=== PATIENT | male | born 1960 | race Caucasian/White ===

== ENCOUNTER 2017-07-15 16:04 | Outpatient (CLI) | payer BC ==
--- NOTE | 2017-07-15 18:59 | MRI ---
MRI CERVICAL SPINE: 07/15/2017 HISTORY: Acute cervical radiculopathy. Neck pain for several years. COMPARISON: 09/11/2003 FINDINGS: There is mild atrophy of each of the visualized cerebellar hemispheres. The cervicomedullary junctio n demonstrates a normal MRI appearance. The paravertebral soft tissues have a normal signal intensit y. There are mild endplate degenerative changes seen at the C4-C5 and C5-C6 levels. Normal signal inten sity is otherwise demonstrated throughout the bone marrow. C2-C3: There is no disk bulge or disk herniation. The central spinal canal and neural foramina are patent. C3-C4: There is trace anterolisthesis of C3 on C4, which was not present on the prior exam. There a re facet degenerative changes, primarily on the left, at this level. A small synovial cyst is seen p osterior to the facet joints on the left, measuring less than 1 cm. There is a mild broad-based disk osteophyte complex, which narrows the ventral subarachnoid space. The right neural foramen is paten t, but there is what appears to be severe left-sided neural foraminal narrowing, which is an interval change from the prior exam. C4-C5: There is loss of intervertebral disk height. There is a broad-based disk osteophyte complex, which narrows the ventral subarachnoid space. There is moderate left and severe right-sided neural foraminal narrowing. Uncinate process hypertrophy is present on the right. C5-C6: There is loss of intervertebral disk height. There is a mild broad-based disk osteophyte com plex, resulting in slight effacement of the ventral subarachnoid space, but does not encroach on the central spinal canal. The left neural foramen is patent, but there is mild to moderate right-sided n eural foraminal narrowing. C6-C7: There is uncinate process hypertrophy bilaterally, with mild broad-based disk osteophyte comp max noted. Mild facet degenerative changes are seen. There is mild right and moderate left-sided ne ural foraminal narrowing. C7-T1: There is no disk bulge or disk herniation. The central spinal canal and neural foramina are patent. IMPRESSION: 1. Multilevel degenerative changes seen throughout the cervical spine, which have progressed compare d to a study in 2003. 2. Trace anterolisthesis of C3 on C4, likely related to the facet degenerative changes at this level . POS: [facility]
== END 2017-07-15 16:05 | disposition home or self-care (01) ==
LOC: TBSIIMAG 16:04
PROVIDERS: ATTEND Anesthesiology Pain Medicine
DX: M47.22 Other spondylosis with radiculopathy, cervical region (principal)
CPT/HCPCS: 72141

== ENCOUNTER 2017-07-24 08:21 | Outpatient (CLI) | payer BC | END 2017-07-24 08:22 | disposition home or self-care (01) | LOC: BICRAD 08:21 | PROVIDERS: ATTEND Anesthesiology Pain Medicine | DX: M47.892 Other spondylosis, cervical region (principal); M43.12 Spondylolisthesis, cervical region | CPT/HCPCS: 72050 ==

== ENCOUNTER 2018-02-04 12:09 | Emergency (ER) | payer BC ==
[2018-02-04 12:32] LABS: #Basophils 0.1 thou/uL (0.0-0.2); #Eosinphils 0.1 thou/uL (0.0-0.7); #Lymphocytes 2.6 thou/uL (1.20-3.40); #Monocytes 0.5 thou/uL (0.11-0.59); #Neutrophils 4.2 thou/uL (1.40-6.50); %Basophils 0.8 % (0.0-1.0); %Lymphocytes 35.5 % (21.0-51.0); %Monocytes 6.7 % (0.0-10.0); %Neutrophils 56.1 % (42.0-75.0); Hemoglobin 15.9 g/dL (14.0-18.0); Mean Corpuscular HGB CONC 34.1 g/dL (32.0-36.0); Mean Corpuscular Hemoglobin 28.9 pg (27.0-31.0); Mean Corpuscular Volume 84.8 fL (78.0-98.0); Mean Platelet Volume 8.3 fL (7.4-10.4); Platelet Count 206 thou/uL (130-400); RBC Distribution Width 11.3 % (11.5-14.5); Red Blood Cell (RBC) Count 5.49 mill/uL (4.70-6.10); White Blood Cell (WBC) Count 7.4 thou/uL (4.8-10.8)
[2018-02-04 12:34] LABS: MDiff Complete? YES
[2018-02-04 12:41] LABS: Anion Gap 17 mmol/L (10-20); BUN (Urea Nitrogen) 17 mg/dL (8.4-25.7); Calc. Creatinine Clearance 0 mL/min (70-130); Calcium 10.4 mg/dL (7.8-10.44); Carbon Dioxide 26 mmol/L (22-29); Chloride 102 mmol/L (98-107); Estimated GFR-MDRD 58; Glucose 101 mg/dL (70-105); Potassium 4.1 mmol/L (3.5-5.1); Sodium 141 mmol/L (136-145)
[2018-02-04] MEDS ORDERED: Morphine 4 MG/ML VIAL ONE (12:44)
[2018-02-04] MEDS ORDERED: Ondansetron ODT 4 MG TAB ONE (12:45)
--- NOTE | 2018-02-04 13:24 | CT ---
CT PELVIS WITH IV CONTRAST 02/04/18 HISTORY: Rectal pain. Perianal fissure. FINDINGS: Urinary bladder is unremarkable. Small amount of dystrophic calcification associated with a small pro state gland. No free fluid within the pelvis. The perianal subcutaneous tissues are unremarkable. Subtle circumferential wall thickening of the rec elina without adjacent inflammation. The abdomen is not imaged. IMPRESSION: Mild circumferential rectal wall thickening. Clinical correlation regarding other signs and symptoms of proctitis is required. No evidence of complication. POS: ED
== END 2018-02-04 13:54 | disposition home or self-care (01) ==
LOC: SCSER 12:09
DX: K60.2 Anal fissure, unspecified (principal)
CPT/HCPCS: 72193; 80048; 85025; 96361; 96374; J2270; Q0162